=== PATIENT | female | born 1990 | race American Indian/Alaskan Native ===

== ENCOUNTER 2022-02-23 08:39 | Outpatient (CLI) | payer OTHER ==
[2022-02-23 09:07] VITALS: BP 106/67
== END 2022-02-23 13:14 | disposition home or self-care (01) ==
LOC: TRG 08:39 → APU 08:41 → TRG 13:14
PROVIDERS: ATTEND Obstetrics & Gynecology
DX: O47.1 False labor at or after 37 completed weeks of gestation (principal); Z3A.40 40 weeks gestation of pregnancy
CPT/HCPCS: 59025